=== PATIENT | female | born 1960 | race Caucasian/White ===

== ENCOUNTER 2021-01-17 00:35 | Emergency (ER) | payer BC, SELFPAY ==
[2021-01-17 01:01] VITALS: BP 172/86; PULSE 64; RESP 18; TEMP 36.9; O2SAT 99; BMI 25.8
[2021-01-17 01:06] VITALS: O2SAT 98
--- NOTE | 2021-01-17 01:11 | XRR_ITS ---
PROCEDURE INFORMATION: Exam: XR Chest Exam date and time: 01/17/2021 1:11 AM Age: 60 years old Clinical indication: Dyspnea; Additional info: SOB TECHNIQUE: Imaging protocol: XR of the chest. Views: 1 view. COMPARISON: No relevant prior studies available. FINDINGS: Lungs: Hyperaerated lungs consistent with severe COPD . Possible collapse of medial segment right lobe. CT chest may be helpful rule out mucous plug or other obstructing lesion. Pleural spaces: Unremarkable. No pleural effusion. No pneumothorax. Heart/Mediastinum: Unremarkable. No cardiomegaly. Bones/joints: Unremarkable. XR/XR chest 1V portable [id number] IMPRESSION: 1. Hyperaerated lungs consistent with severe COPD . 2. Possible collapse of medial segment right lobe. CT chest may be helpful rule out mucous plug or other obstructing lesion.
--- NOTE | 2021-01-17 01:18 | W.ED.COVID ---
HPI - COVID General: Chief Complaint: COVID symptoms Stated Complaint: fatigue/sob/weakness Time Seen by Provider: 01/17/21 01:07 Source: patient Mode of arrival: ambulatory Limitations: no limitations Triage information: Has fever, cough or shortness of breath. Exposure to COVID + person last 14 days History of Present Illness: HPI Narrative: 60-year-old female states over the last 3 to 4 days she has been having cough congestion along with body aches. She has had low-grade fevers as well. She denies any worsening improving factors. She states she has had sick contacts. Patient here is in no distress able speak in full sentences and pulse ox is normal. COVID 19 common symptoms: positive fever(s), non-productive cough and body aches; negative headache(s), throat pain, nausea, vomiting or diarrhea COVID 19 other sytmptoms: negative chest pain COVID Results: SARS-CoV-2 Antigen (Rapid) Negative (Negative) 01/17/21 01:40 01/17/21 Review of Systems Const: Reports: fever(s) and body aches Eyes: Denies: blurry vision or eye discomfort ENMT: Denies: throat pain or dental pain Card: Denies: chest pain Resp: Reports: non-productive cough GI: Denies: abdominal pain, nausea, vomiting or diarrhea : Denies: dysuria Musc: Denies: neck pain or back pain Skin/Breast: Denies: rash Neuro: Denies: headache(s) Psych: Denies: depression Esequiel/Lymph: Denies: easy bruising All/Imm: Denies: urticaria Physical Exam Const: COMMON NORMALS: no acute distress, patient oriented x3 and healthy appearing HENMT: COMMON NORMALS: normocephalic and atraumatic HEAD & SCALP: normocephalic and atraumatic Eye: COMMON NORMALS: Equal, round and reactive pupils present and EOMs intact bilaterally PUPIL: Yes Equal, round and reactive pupils present Neck/C-Spine: COMMON NORMALS: full ROM and supple Chest: COMMONS NORMALS: normal inspection of the chest and normal palpation of entire chest wall Resp: COMMON NORMALS: normal respiratory effort, No retractions, No use of accessory muscles and clear to auscultation bilaterally AUSCULTATION: clear to auscultation bilaterally Cardio: COMMON NORMALS: regular rate, regular rhythm and No murmurs present (Cardio) RATE: regular rate RHYTHM: regular rhythm GI: COMMON NORMALS: Normal to inspection, nondistended, normoactive bowel sounds present, Soft to palpation, non-tender and no masses PALPATION: Yes Soft to palpation Extremity: COMMON NORMALS: normal to inspection and full ROM Neuro: COMMON NORMALS: patient oriented x3, moves all extremities and no focal motor deficits Psych: COMMON NORMALS: mental status grossly normal, Normal thought process present and cooperative THOUGHT PROCESS: Normal thought process present Skin: COMMON NORMALS: no rashes or lesions noted and no wounds GENERAL SKIN EXAM: no rashes or lesions noted Course Vital Signs: Vital signs: Vital Signs Temperature 98.4 F 01/17/21 01:01 Pulse Rate 64 01/17/21 01:01 Respiratory Rate 18 01/17/21 01:01 Blood Pressure 172/86 01/17/21 01:01 Pulse Oximetry 98 01/17/21 01:06 MDM - COVID MDM Narrative: Medical decision making narrative: Patient presents here with likely viral syndrome. Patient tested negative for Covid blood work is all normal. CT chest was negative. She is stable for discharge is to follow-up with PCP and return if worsening. Lab Data: Labs: Lab Results 01/17/21 01/17/21 01/17/21 Range/Units 01:40 01:40 01:40 WBC 8.0 (4.0-10.0) 10^3/ uL RBC 5.12 (4.1-5.3) 10^6/u L Hgb 14.4 (11.5-15.3) g/dL Hct 43.4 (37.0-47.0) % MCV 84.8 (81-99) fL MCH 28.1 (28.0-34.0) pg MCHC 33.2 (30.0-36.0) g/dL RDW 13.2 (12.1-15.1) % Plt Count 216 (130-400) 10^3/c mm MPV 11.2 H (7.4-10.4) fL Neut % (Auto) 71.7 % Lymph % (Auto) 17.5 % Mclean % (Auto) 8.9 % Eos % (Auto) 1.1 % Baso % (Auto) 0.4 % Neut # (Auto) 5.70 (1.8-7.7) 10^3/u L Lymph # (Auto) 1.4 (0.8-4.8) 10^3/u L Mclean # (Auto) 0.7 (0.2-0.9) 10^3/u L Eos # (Auto) 0.1 (0.0-0.8) 10^3/u L Baso # (Auto) 0.0 (0.0-0.1) 10^3/u L Nucleated RBC % (a uto) 0 % Nucleated RBCs # 0.0 /100WBC Sodium 137 (136-145) mmol/L Potassium 3.5 (3.5-5.1) mmol/L Chloride 105 (98-107) mmol/L Carbon Dioxide 19 L (22-29) mmol/L Anion Gap 16.5 (5-19) BUN 7 (6-20) mg/dL Creatinine 0.6 (0.5-0.9) mg/dL GFR Calculation 102.7 (90-130) mL/min Glucose 105 (65-115) mg/dL Calculated Osmolal ity 282 L (285-295) mOsm/k g Calcium 8.5 (8.5-10.5) mg/dL Total Bilirubin 0.6 (0.15-1.2) mg/dL AST 24 (0-32) U/L ALT 20 (0-33) U/L Alkaline Phosphata se 74 (35-105) IU/L Total Protein 6.5 L (6.6-8.7) g/dL Albumin 3.8 (3.5-5.2) g/dL Globulin 2.7 (1.3-4.6) g/dL Lipase 40 (13-60) U/L SARS-CoV-2 Ag (Rap id) Negative (Negative) Imaging Data: CT Chest: Attestation: I personally reviewed and interpreted this imaging study as follows: Radiologist's impression: [address] [address] [address] Scan Report Signed Patient: Parvin Preston Unit #: [id number] : 1960 Age/Sex: 60 / F ADM Date: 01/17/21 Loc: ER Room/Bed: Attending Dr: Ordering Provider/Ordering MD: Chi Bates MD Date of Service: 01/17/21 Procedure(s): CT angio chest PE protcl [id number] Accession Number(s): [id number] Report Number: [id number] PROCEDURE INFORMATION: Exam: CTA Chest With Contrast Exam date and time: 01/17/2021 2:45 AM Age: 60 years old Clinical indication: Abnormal findings; Abnormal radiologic exam of lung or chest; Additional info: SOB TECHNIQUE: Imaging protocol: Computed tomographic angiography of the chest with contrast. 3D rendering (Not supervised by radiologist): MIP and/or 3D reconstructed images were created by the technologist. Radiation optimization: All CT scans at this facility use at least one of these dose optimization techniques: automated exposure control; mA and/or kV adjustment per patient size (includes targeted exams where dose is matched to clinical indication); or iterative reconstruction. Contrast material: OMNI 350; Contrast volume: 95 ml; Contrast route: INTRAVENOUS (IV); COMPARISON: CR (CHEST, ) 01/17/2021 1:13 AM RADIATION DOSE METRICS: Total DLP (mGy-cm): 620.14 FINDINGS: Pulmonary arteries: Normal. No pulmonary emboli. Aorta: Unremarkable. No aortic aneurysm. No aortic dissection. Lungs: There is a background of centrilobular emphysema. Pleural spaces: Unremarkable. No pneumothorax. No pleural effusion. Heart: Unremarkable. No cardiomegaly. No pericardial effusion. Lymph nodes: Unremarkable. No enlarged lymph nodes. Bones/joints: Unremarkable. No acute fracture. Soft tissues: Unremarkable. CT/CT angio chest PE protcl [id number] IMPRESSION: There are no acute chest findings. There is no evidence for pulmonary emboli. Radiation Dose CTDIVOL = (mGy): DLP = 620.14 (mGy-cm) Dictated By: Jassi Adams MD Signed By: Jassi Adams MD Signed Date/Time: 01/17/21 0348 COVID Results: SARS-CoV-2 Antigen (Rapid) Negative (Negative) 01/17/21 01:40 01/17/21 Discharge Plan Discharge Patient Disposition: Home Clinical Impression: Acute viral syndrome Condition: Stable Discharge Orders: Discharge ED (Routine); Ordered 01/17/21 Ordered By: Chi Bates Discharge Diet: Advance as tolerated Discharge Activity: Resume usual activity Patient Instructions: Viral Syndrome (ED) Stand Alone Forms: Work/School Release Coding Level of Care Code ED Enterprise Application 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
[2021-01-17] MEDS: sodium chloride 0.9% 1,000 ML 999 ML IV (01:40)
[2021-01-17 01:57] LABS: Basophils % 0.4 %; Eosinophils # 0.1 10^3/uL (0.0-0.8); Eosinophils % 1.1 %; Hematocrit 43.4 % (37.0-47.0); Hemoglobin 14.4 g/dL (11.5-15.3); Lymphocytes # 1.4 10^3/uL (0.8-4.8); Lymphocytes % 17.5 %; Mean Corpuscular HGB Conc 33.2 g/dL (30.0-36.0); Mean Corpuscular Hemoglobin 28.1 pg (28.0-34.0); Mean Corpuscular Volume 84.8 fL (81-99); Mean Platelet Volume 11.2 fL (7.4-10.4); Monocytes # 0.7 10^3/uL (0.2-0.9); Monocytes % 8.9 %; Neutrophils % 71.7 %; Nucleated Red Blood Cells % 0 %; Platelet Count 216 10^3/cmm (130-400); Red Blood Count 5.12 10^6/uL (4.1-5.3); Red Cell Distribution Width 13.2 % (12.1-15.1)
[2021-01-17 02:17] LABS: Alanine Aminotransferase 20 U/L (0-33); Albumin Level 3.8 g/dL (3.5-5.2); Alkaline Phosphatase 74 IU/L (35-105); Anion Gap 16.5 (5-19); Aspartate Amino Transferase 24 U/L (0-32); Blood Urea Nitrogen 7 mg/dL (6-20); Calcium 8.5 mg/dL (8.5-10.5); Carbon Dioxide 19 mmol/L (22-29); Chloride 105 mmol/L (98-107); Globulin 2.7 g/dL (1.3-4.6); Glomerular Filtration Rate 102.7 mL/min (90-130); Glucose 105 mg/dL (65-115); Lipase 40 U/L (13-60); Osmolality Calculated 282 mOsm/kg (285-295); Potassium 3.5 mmol/L (3.5-5.1); Sodium 137 mmol/L (136-145); Total Bilirubin 0.6 mg/dL (0.15-1.2); Total Protein 6.5 g/dL (6.6-8.7)
[2021-01-17 02:39] LABS: SARS Covid-2 Antigen Negative (Negative)
--- NOTE | 2021-01-17 02:45 | CTR_ITS ---
PROCEDURE INFORMATION: Exam: CTA Chest With Contrast Exam date and time: 01/17/2021 2:45 AM Age: 60 years old Clinical indication: Abnormal findings; Abnormal radiologic exam of lung or chest; Additional info: SOB TECHNIQUE: Imaging protocol: Computed tomographic angiography of the chest with contrast. 3D rendering (Not supervised by radiologist): MIP and/or 3D reconstructed images were created by the technologist. Radiation optimization: All CT scans at this facility use at least one of these dose optimization techniques: automated exposure control; mA and/or kV adjustment per patient size (includes targeted exams where dose is matched to clinical indication); or iterative reconstruction. Contrast material: OMNI 350; Contrast volume: 95 ml; Contrast route: INTRAVENOUS (IV); COMPARISON: CR (CHEST, ) 01/17/2021 1:13 AM RADIATION DOSE METRICS: Total DLP (mGy-cm): 620.14 FINDINGS: Pulmonary arteries: Normal. No pulmonary emboli. Aorta: Unremarkable. No aortic aneurysm. No aortic dissection. Lungs: There is a background of centrilobular emphysema. Pleural spaces: Unremarkable. No pneumothorax. No pleural effusion. Heart: Unremarkable. No cardiomegaly. No pericardial effusion. Lymph nodes: Unremarkable. No enlarged lymph nodes. Bones/joints: Unremarkable. No acute fracture. Soft tissues: Unremarkable. CT/CT angio chest PE protcl [id number] IMPRESSION: There are no acute chest findings. There is no evidence for pulmonary emboli. Radiation Dose CTDIVOL = (mGy): DLP = 620.14 (mGy-cm)
[2021-01-17] MEDS: iohexol 350 mg/mL 100 mL Btl IV (03:28)
[2021-01-17 03:55] VITALS: BP 164/80; PULSE 66; RESP 18; O2SAT 99
== END 2021-01-17 04:00 | disposition home or self-care (01) ==
PROVIDERS: Emergency Provider Emergency Medicine
DX: B34.9 Viral infection, unspecified (principal); Z20.822 Contact with and (suspected) exposure to COVID-19
CPT/HCPCS: 71045; 71275; 80053; 83690; 85025; 87426; 96360; 99284; J7030; Q9967

== ENCOUNTER 2021-08-01 00:53 | Observation (INO) | payer BC, SELFPAY ==
[2021-08-01] VITALS (10 sets, daily range): BP systolic 126–178; BP diastolic 65–101; PULSE 70–84; RESP 16–22; TEMP 36.1–36.7; O2SAT 94–100; BMI 26.4
--- NOTE | 2021-08-01 01:03 | ED_ITS ---
HPI - General Adult General: Chief complaint: Airway/Esophagus Foreign Body Stated complaint: FOOD STUCK IN THROAT Time Seen by Provider: 08/01/21 00:53 Source: patient Mode of arrival: ambulatory Limitations: no limitations History of Present Illness: 61-year-old female who states that she had a piece of steak on 9 PM states that she was unable to swallow it and states that since then she has not been able to tolerate liquids or solids. States she has been unable to tolerate her own saliva very well as well. Patient was seen at [facility] and transferred here for admission for EGD. She denies any pain currently. Associated symptoms: Deny chest pain, dyspnea, headache(s), nausea, rash or vomiting Review of Systems Const: Denies: fever(s), chills, body aches or change in appetite Eyes: Denies: blurry vision or eye discomfort ENMT: Denies: throat pain or dental pain Card: Denies: chest pain Resp: Denies: dyspnea GI: Denies: abdominal pain, nausea, vomiting or diarrhea : Denies: dysuria Musc: Denies: neck pain or back pain Skin/Breast: Denies: rash Neuro: Denies: headache(s) Psych: Denies: depression Esequiel/Lymph: Denies: easy bruising All/Imm: Denies: urticaria Physical Exam Const: COMMON NORMALS: patient oriented x3 and healthy appearing HENMT: COMMON NORMALS: normocephalic and atraumatic HEAD & SCALP: normocephalic and atraumatic Eye: COMMON NORMALS: Equal, round and reactive pupils present and EOMs intact bilaterally PUPIL: Yes Equal, round and reactive pupils present Neck/C-Spine: COMMON NORMALS: full ROM and supple Chest: COMMONS NORMALS: normal inspection of the chest and normal palpation of entire chest wall Resp: COMMON NORMALS: normal respiratory effort, No retractions, No use of accessory muscles and clear to auscultation bilaterally AUSCULTATION: clear to auscultation bilaterally Cardio: COMMON NORMALS: regular rate, regular rhythm and No murmurs present (Cardio) RATE: regular rate RHYTHM: regular rhythm GI: COMMON NORMALS: Normal to inspection, nondistended, normoactive bowel sounds present, Soft to palpation, non-tender and no masses PALPATION: Yes Soft to palpation Extremity: COMMON NORMALS: normal to inspection and full ROM Neuro: COMMON NORMALS: patient oriented x3, moves all extremities and no focal motor deficits Psych: COMMON NORMALS: mental status grossly normal, Normal thought process present and cooperative THOUGHT PROCESS: Normal thought process present Skin: COMMON NORMALS: no rashes or lesions noted and no wounds GENERAL SKIN EXAM: no rashes or lesions noted Course Vital Signs: Vital signs: Vital Signs Temperature 98.1 F 08/01/21 00:58 Pulse Rate 84 08/01/21 00:58 Respiratory Rate 18 08/01/21 00:58 Blood Pressure 160/101 08/01/21 00:58 Pulse Oximetry 96 08/01/21 00:58 MDM - General Adult Medical Decision Making Patient presents here with an esophageal food impaction I spoke to surgeon on- call will admit and she will GI Lab for seeing in the morning she has been well- appearing here in no distress. Discharge Plan Discharge Patient Disposition: Admitted As Inpatient Admit Provider: Jai Jay Clinical Impression: Esophagus, foreign body Condition: Stable Coding Level of Care Code ED Serging Machine Operator for Chg Fwd Exam Comprehensive
[2021-08-01] MEDS: ondansetron 2 mg/ML SDV 2 mL 4 MG IVP (01:19)
--- NOTE | 2021-08-01 01:39 | PC.NURSE ---
Pt. admitted to med/surg for observation. Pt. upset that procedure is not being done until tomorrow to remove bolus.
[2021-08-01] MEDS: sodium chloride 0.9% 1,000 ML 75 ML IV (01:50)
[2021-08-01] MEDS: sodium chloride 0.9% 1,000 ML 30 ML IV (09:46)
--- NOTE | 2021-08-01 09:49 | ANES.PREANE2 ---
Pre-Anesthetic Assessment Height/Weight: Height 1.75 m Weight 81.193 kg Temp Pulse Resp BP Pulse Ox 97.3 F L 70 22 H 178/83 98 08/01/21 09:47 08/01/21 09:47 08/01/21 09:47 08/01/21 09:47 08/01/21 09:47 Operation Date: 08/01/21 11:30 Proposed Procedures p EGD WITH POSSIBLE REMOVAL OF FOREIGN OBJECT(Not Applicable) - Jai Jay MD Familial anesthetic complications: None Was Beta Marshall taken within 24 hours: N/A Was Clonidine taken within 24 hours: N/A Last intake: > 8 hrs, food bolus Social Tobacco (vapes) and No alcohol Exam alert, oriented x 3, clear to auscultation bilaterally and regular rate & rhythm Airway Mallampati: Class II Dentition: false Pulmonary Chronic Obstructive Pulmonary Disease CV/HEM None reported None reported Hepatic None reported GI None reported Metabolic None reported Musc/skel None reported Neuropsych None reported Anesthetic Plan ASA status: 2 Anesthesia: General Risk of > 500 ml blood loss (7ml/kg in children): No Medications/Allergies Home Medications Medication Instructions Recorded Confirmed Last Taken Type No Known Home Medications 08/01/21 08/01/21 Unknown History Allergies Allergy/AdvReac Type Severity Reaction Status Date / Time No Known Allergies Allergy Verified 08/01/21 08:38 Current Medications Generic Name Dose Route Start Last Admin Trade Name Freq PRN Reason Stop Dose Admin Sodium Chloride 1,000 mls @ 75 mls/hr 08/01/21 01:31 08/01/21 01:50 Sodium Chloride 0.9% IV 75 mls/hr .[id number] ALEJANDRO Administration Sodium Chloride 1,000 mls @ 30 mls/hr 08/01/21 09:45 08/01/21 09:46 Sodium Chloride 0.9% IV 08/02/21 09:44 30 mls/hr .[id number] ALEJANDRO Administration Data Anesthesia Cardiac Studies: No Data to Display
--- NOTE | 2021-08-01 09:55 | P.HP_ITS ---
Providers/Chief Complaint Admitting Physician: Jai Jay MD Chief Complaint: FOOD STUCK IN THROAT History of Present Illness Parvin Preston is a 61 year old female who presented to an outside facility last night with sensation of food stuck in her throat. 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 She denies any chest pain or abdominal pain. No similar episodes in the past. Patient denies significant GERD, PUD or prior EGD Medications/Allergies Home Medications Medication Instructions Recorded Confirmed Last Taken Type No Known Home Medications 08/01/21 08/01/21 Unknown History Allergies Allergy/AdvReac Type Severity Reaction Status Date / Time No Known Allergies Allergy Verified 08/01/21 08:38 PFSH Acute PFSH: Surgical History (Updated 08/01/21 @ 09:56 by Jai Jay MD) H/O: hysterectomy History of ankle surgery S/P knee surgery Vitals/I&O/Wt Last Vital Signs Temp 97.3 F L 08/01/21 09:47 Pulse 70 08/01/21 09:47 Resp 22 H 08/01/21 09:47 BP 178/83 08/01/21 09:47 Pulse Ox 98 08/01/21 09:47 Weight last 48 hrs Weight 179 lb Physical Exam Narrative: HEENT: Normocephalic Eye: Sclera /conjunctiva normal Abdomen: Soft to palpation, nontender, nondistended Neurological: Oriented to place person and time Skin: Intact, no lesions appreciated on gross exam A&P Assessment and plan (1) Esophagus, foreign body: 61-year-old female with esophageal obstruction from food impaction after she ate steak last night. She is hemodynamically stable. Plan for EGD with disimpaction of food bolus under general anesthesia today Procedure, risks, benefits and alternatives have been discussed with the patient who wishes to proceed with surgery. Status: Acute Attestations Medical Necessity Statement*: Esophageal obstruction requiring EGD Coding Level of Care Code Acute Remediation Project Engineer for [facility] Fwd Diagnoses Esophagus, foreign body T18.108A
--- NOTE | 2021-08-01 10:16 | PC.CHAP ---
Pastoral Care Encounter/Spiritual Assessment Type of Contact [] Declined wood heel finisher visit [] Patient/Family/Request visit [] Outpatient visit [] Follow-up visit [] Physician referral [] Code/Alert [x] Routine visit [] Staff referral [] Actively dying [] Patient sleeping [] Family support [] [] Out of room [] Palliative care [] [] Receiving care in room [] Pre-surgical visit [] Trauma [] Long length of stay [] ICU visit [] Other: Relational/Emotional Strength [x] Patient feels connected with others/family/visitors/staff [] Distress [] Loneliness/isolation [] Abandonment Spirituality of Patient [x] Person of Rtacey [] Attends Bahai of their Tracey [x] Believes in Prayer [] Reads Bible or Protestant materials [] There are Spiritual issues to be addressed Janitor Caretaker Interventions x [x] Prayer [x] Active listening [x] Non-anxious presence [x] Spiritual/emotional support [] Crisis/trauma care [] Spiritual counseling [] Bereavement support [] Provided bereavement packet [] Provided Bible/devotional materials [] Provided toy/stuffed animal, coloring book to patient or family member [] Provided Communion [] Anointing/[place] [] Salvation [x] Completed spiritual assessment [] Other: Impact on Illness or Injury [] Angry [] Fearful [] Anxious [] Often cries [] Exhaustion [] Unable to work [] Unable to attend tenriism [] Unable to walk/stand [] Unable to read [] Unable to drive [] Unable to eat/drink [] Unable to sleep [] Unable to be with family [] Patient intubated [] Other: Summary Time spent with patient 10 min
--- NOTE | 2021-08-01 10:54 | P.SS_ITS ---
Short Stay Summary Providers Date of Admit/Discharge: 08/01/21 Attending Provider: Jai Otero MD Chief Complaint: FOOD STUCK IN THROAT HPI History of Present Illness Parvin Preston is a 61 year old female started yesterday Home Meds/Allergies Home Medications and Allergies Allergies Allergy/AdvReac Type Severity Reaction Status Date / Time No Known Allergies Allergy Verified 08/01/21 08:38 PFSH Acute PFSH: Surgical History (Updated 08/01/21 @ 10:53 by Jai Otero MD) H/O esophagogastroduodenoscopy (08/01/21) for food bolus H/O: hysterectomy History of ankle surgery S/P knee surgery Vitals/I&O/Wt Last Vital Signs Temp 97.3 F L 08/01/21 09:47 Pulse 70 08/01/21 09:47 Resp 22 H 08/01/21 09:47 BP 178/83 08/01/21 09:47 Pulse Ox 98 08/01/21 09:47 Weight last 48 hrs Weight 179 lb Diagnoses at Discharge Discharge Diagnosis (1) Esophagus, foreign body: Status: Acute Discharge Plan Discharge Patient Disposition: Home Condition: Stable Prescriptions: New Protonix 40 mg tablet,delayed release (DR/EC) 40 mg PO DAILY 42 Days Qty: 42 0RF Discharge Orders: Discharge Order (Routine); Ordered 08/01/21 Ordered By: Jai Otero Referrals: Jai Otero MD [Physician] - 08/16/21 (TELEVISIT DR OTERO WILL CALL WITH PHONE VISIT) Discharge Diet: Advance as tolerated Discharge Activity: Resume usual activity Patient Instructions: Pantoprazole (By mouth), GI Discharge Instructions, Opioid Safety Coding Level of Care Code Acute Escalator Mechanic for Chg Fwd Diagnoses Esophagus, foreign body T18.108A
--- NOTE | 2021-08-01 10:57 | P.PCN_ITS ---
PACU note Narrative: VSS, Good respiratory effort, report to PLACEMENT OFFICER Exam: awake
--- NOTE | 2021-08-01 10:57 | PM.PACU ---
PACU note Narrative: VSS, Good respiratory effort, report to RADIO ADJUSTER Exam: awake
--- NOTE | 2021-08-01 12:38 | ANE.PACU2 ---
Inpatient post-anesthesia follow up: Airway intact: Yes Vital signs: Temperature 97.0 F Pulse Rate 74 Respiratory Rate 18 Blood Pressure 126/65 Pulse Oximetry 98 Oxygen Delivery Me thod Room Air Oxygen Flow Rate Fraction of Inspir ed Oxygen Hydration adequate: Yes Nausea and vomiting: No Pain level: 1 Mental status: Baseline
--- NOTE | 2021-08-01 13:21 | P.DS_ITS ---
Discharge Providers Date of Admission: 08/01/21 01:06 Date of Discharge: August 01, 2021 Attending Provider at Admission: Jai Otero MD Attending Provider at Discharge: Jai Otero MD Diagnoses at Discharge Discharge Diagnosis (1) Esophagus, foreign body: Status: Acute Reason for Visit Reason for Visit: FOOD STUCK IN THROAT Brief History: Parvin Preston is a 61 year old female who presented to an outside facility last night with sensation of food stuck in her throat.? 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 She denies any chest pain or abdominal pain.? No similar episodes in the past.? Patient denies significant GERD, PUD or prior EGD Hospital Course Hospital Course Patient underwent EGD with biopsies and disimpaction of food bolus. At the time of discharge her vital signs are stable and she was tolerating a liquid diet Discharge Data Studies Completed and Pending Pending at discharge Category Date Time Status Pathology: Surgical [PTH] Routine Pth 08/01/21 10:55 Received Vitals Last Vital Signs Temp 97.0 F L 08/01/21 11:57 Pulse 74 08/01/21 11:57 Resp 18 08/01/21 11:57 BP 126/65 08/01/21 11:57 Pulse Ox 98 08/01/21 11:57 Discharge Plan Discharge Patient Disposition: Home Condition: Stable Prescriptions: New Protonix 40 mg tablet,delayed release (DR/EC) 40 mg PO DAILY 42 Days Qty: 42 0RF Discharge Orders: Discharge Order (Routine); Ordered 08/01/21 Ordered By: Jai Otero Referrals: Jai Otero MD [Physician] - 08/16/21 (TELEVISIT DR OTERO WILL CALL WITH PHONE VISIT) Discharge Diet: Advance as tolerated Discharge Activity: Resume usual activity Patient Instructions: Pantoprazole (By mouth), GI Discharge Instructions, Opioid Safety Discharge Attestations Time Spent in Discharge Care*: less than 30 min Quality Metrics Clinical Quality Measures [ No reported AMI, CVA or VTE this stay] Coding Level of Care Code Acute Chg FW DC note Diagnoses Esophagus, foreign body T18.108A
== END 2021-08-01 11:57 | disposition home or self-care (01) ==
LOC: ER 01:09 → MEDSURG 01:15
PROVIDERS: Admitting Provider Surgery; Emergency Provider Emergency Medicine; Visit Provider Surgery
PROC: 0DJ08ZZ Inspection of Upper Intestinal Tract, Via Natural or Artificial Opening Endoscopic (ICD-10-PCS; CPT 43235; principal; 2021-08-01 11:30)
DX: T17.228A Food in pharynx causing other injury, initial encounter (principal); F17.290 Nicotine dependence, other tobacco product, uncomplicated; J44.9 Chronic obstructive pulmonary disease, unspecified
CPT/HCPCS: 43239; 43247; 88305; 88342; 96374; 99285; G0378; J0330; J1100; J2405; J2704; J3010; J3490; J7030